=== PATIENT | female | born 1960 | race Caucasian/White ===

== ENCOUNTER → 2016-05-06 | Outpatient (CLI) | payer BC ==
--- NOTE | 2016-05-06 08:55 | DIAGNOSTIC IMAGING REPORT ---
LEFT SHOULDER MIN 2 VIEWS ROUTINE CLINICAL HISTORY: M06.041 Rheumatoid arthritis involving both hands with negative pain COMPARISON: None. DISCUSSION: Moderate degenerative change acromioclavicular joint. Mild degenerative change glenohumeral joint. No evidence for abnormal soft tissue calcification. No evidence for fracture or dislocation. IMPRESSION: Mild to moderate degenerative change. No acute bony abnormality. Electronically signed by: Freddy Camargo M.D. 05/06/2016 8:53 AM Dictated Date/Time: 05/06/2016 8:53 AM
== END | disposition home or self-care (01) ==
LOC: C.RAD1850 08:32
PROVIDERS: ATTEND Internal Medicine Rheumatology
DX: M06.041 Rheumatoid arthritis without rheumatoid factor, right hand (principal); M06.042 Rheumatoid arthritis without rheumatoid factor, left hand; M25.512 Pain in left shoulder; Z79.899 Other long term (current) drug therapy; Z92.29 Personal history of other drug therapy

== ENCOUNTER → 2016-08-29 | Outpatient (CLI) | payer BC | END | disposition home or self-care (01) | LOC: C.MAMM 15:13 | PROVIDERS: ATTEND Internal Medicine Rheumatology | DX: M06.041 Rheumatoid arthritis without rheumatoid factor, right hand (principal); M06.042 Rheumatoid arthritis without rheumatoid factor, left hand; M25.512 Pain in left shoulder; Z79.899 Other long term (current) drug therapy; E55.9 Vitamin D deficiency, unspecified; M85.89 Other specified disorders of bone density and structure, multiple sites ==

== ENCOUNTER → 2016-09-10 | Outpatient (CLI) | payer BC ==
--- NOTE | 2016-09-10 16:43 | MAMMOGRAPHY REPORT ---
BILATERAL DIGITAL SCREENING MAMMOGRAM TOMOSYNTHESIS WITH CAD: 09/10/2016 CLINICAL HISTORY: Routine screening. Patient has no complaints. TECHNIQUE: Breast tomosynthesis in addition to standard 2D mammography was performed. Current study was also evaluated with a Computer Aided Detection (CAD) system. COMPARISON: Comparison is made to exams dated: 09/08/2015 mammogram, 09/02/2013 mammogram, 09/05/2014 m ammogram, 09/03/2012 mammogram, 08/31/2012 mammogram, and 09/04/2011 mammogram - [facility] enter. BREAST COMPOSITION: The tissue of both breasts is heterogeneously dense, which may obscure small mas ses. FINDINGS: There has been no significant interval change compared to prior exams. No new suspicious m ass, architectural distortion or cluster of microcalcifications is seen. IMPRESSION: ACR BI-RADS CATEGORY 1: NEGATIVE There is no mammographic evidence of malignancy. A 1 year screening mammogram is recommended. The pa tient will receive written notification of the results. Approximately 10% of breast cancers are not detected with mammography. A negative mammographic report should not delay biopsy if a clinically suggestive mass is present. Kendra Zambrano M.D. ay/:09/10/2016 16:14:04 Appliance Tester: Libby Garcia, [facility] letter sent: Normal 1/2 BI-RADS Code: ACR BI-RADS Category 1: Negative
== END | disposition home or self-care (01) ==
LOC: C.MAMM 15:49
PROVIDERS: ATTEND Family Medicine
DX: Z12.31 Encounter for screening mammogram for malignant neoplasm of breast (principal)